=== PATIENT | female | born 1995 | race Caucasian/White ===

== ENCOUNTER 2020-06-09 09:42 | Emergency (ER) | payer MEDICAID, SELFPAY ==
[2020-06-09 09:44] VITALS: BP 126/68; PULSE 94; RESP 17; TEMP 36.3; O2SAT 100; BMI 23.0
--- NOTE | 2020-06-09 10:05 | ED.VIS.GEN ---
History of Present Illness Chief Complaint: Chest Pain Informant: Patient Narrative: 24-year-old female presenting with right-sided chest wall pain. She states that she got very worked up during an argument with her significant other earlier and began to hyperventilate. After this her right ribs started hurting her worse. Denies any direct trauma to the area. She states that she gets this from time to time when she hyperventilates. She also relates that she has had a cough on and off for the last month. She also relates a history of hayfever which may be the cause. She is not had fever, myalgias, loss of taste or smell, contact with anybody ill with COVID?19 or other illness. She has a history of asthma but has not needed her inhaler. Past Medical History - Allergies and Home Meds Allergies/Adverse Reactions: Allergies No Known Allergies Allergy (Verified 06/13/17 02:50) Primary Care Physician: Carisa Price DO [NON-STAFF] - Care Physician,No Primary [Primary Care Provider] - Past Medical History: - - Asthma Surgical History: no surgical history Lives: Spouse/ Significant Other Smoking Status: Never smoker Alcohol: None Drugs: None Review of Systems General: Denies: Chills, Fever, Sweats Eyes: Denies: Visual changes - bilaterally, Diplopia ENT: Denies: Rhinorrhea, Sore throat Cardiovascular: Reports: Chest pain. Denies: Palpitations, Heart racing Respiratory: Reports: Cough, - - Right-sided rib pain. Denies: Dyspnea, Sputum, Dyspnea on exertion Gastrointestinal: Denies: Abdominal pain, Nausea, Vomiting Genitourinary: Denies: Dysuria, Hematuria Musculoskeletal: Denies: Myalgias, Arthralgias Skin: Denies: Rash, Abscess Neurological: Denies: Headache, Weakness Physical Exam Vital Signs/Narrative: Vital Signs Temp Pulse Resp BP Pulse Ox 06/09/20 09:44 97.3 F L 94 17 126/68 H 100 Inital Vital Signs reviewed: Yes General: Well nourished, No Acute Distress Head: Normocephalic Eyes: Perrl, EOMI ENT: Moist mucous membranes Neck: Supple, Nontender Cardiovascular: Regular rate, Regular rhythm Respiratory: No distress, CTA bilaterally Abdomen: Soft, Nontender, Nondistended Back: Nontender, Normal Inspection Extremities: Nontender, No edema Skin: Normal color, No rash Neurological: Alert, Oriented x3 Psychological: Normal affect Diagnostic/Tx/Re-eval Clinical Impression(s) from Imaging Studies Chest X-Ray 06/09/20 10:22 IMPRESSION: Normal x-ray examination of the chest. Electronically Signed: Abhay Salazar MD at 10:49 EDT , Service support , Laboratory Data 06/09/20 06/09/20 06/09/20 10:09 10:09 10:09 WBC 8.1 RBC 4.34 Hgb 14.0 Hct 41.1 MCV 94.7 MCH 32.3 H MCHC 34.1 RDW Std Deviation 39.2 RDW Coeff of Marcela 11.5 L Plt Count 283 MPV 9.5 Immature Gran % (Auto) 0.400 Neut % (Auto) 85.7 H Lymph % (Auto) 8.1 L [place] % (Auto) 4.0 Eos % (Auto) 1.6 Baso % (Auto) 0.2 Absolute Neuts (auto) 6.9 Absolute Lymphs (auto) 0.65 L Nucleated RBC % 0 Differential Comment SCANNED Sodium 140 Potassium 3.7 Chloride 109 H Carbon Dioxide 25.0 Anion Gap 6 BUN 9 Creatinine 0.66 Estim Creat Clear Calc 106.85 Est GFR (MDRD) Af Amer 139 Est GFR (MDRD) Non-Af 115 BUN/Creatinine Ratio 13.7 Glucose 94 Calcium 8.5 Troponin I < 0.015 Serum , Qual NEGATIVE - Rhythm Strip Rhythm Strip: Sinus Rhythm Rate: 87 - EKG Initial EKG Interpretation: Sinus Rhythm, No Acute Injury Pattern - Medical Decision Making Patient presents with right-sided chest wall pain after having an argument and hyperventilating. She has no cardiac history. Her heart score is 0. PERC negative. Vital signs are stable and she is afebrile. EKG is normal sinus rhythm without signs of ischemia. Chest x-ray is negative. Lab work is all within normal limits. Patient counseled on all findings. Should be discharged home to use ice and anti-inflammatories for pain. She is given return precautions. Impression: 1. Atypical chest pain ED Disposition - Plan for ED Patient: Disposition: Home or Assisted Living Instructions: ED Chest Pain Atypical Unkn Cause Referrals: Care Physician,No Primary [Primary Care Provider] - Albert,DO Carisa [NON-STAFF] -
--- NOTE | 2020-06-09 10:12 | EKG12_ITS ---
Test Reason : CP Blood Pressure : / mmHG Vent. Rate : 087 BPM Atrial Rate : 087 BPM P-R Int : 156 ms QRS Dur : 070 ms QT Int : 356 ms P-R-T Axes : 082 085 050 degrees QTc Int : 428 ms Normal sinus rhythm Normal ECG Confirmed by CHEYENNE HOYOS MD ([id number]), skilled laborer TAMIE OROZCO ([id number]) on 06/12/2020 4:08:17 PM Referred By: GINI Confirmed By:CHEYENNE HOYOS MD
--- NOTE | 2020-06-09 10:17 | NURSING ---
PATIENT DID NOT HAVE PREVIOUS EKG DONE IN OUR SYSTEM
--- NOTE | 2020-06-09 10:22 | RAD_ITS ---
STUDY: X-RAY CHEST REASON FOR EXAM: Female, 24 years old. COUGH X 2 MONTHS, CP X 1 HOUR TECHNIQUE: Single AP portable upright view of the chest. COMPARISON: PA and lateral chest x-ray 07/23/2014 FINDINGS: The lungs are clear and expanded. There is no demonstrated pleural abnormality. Normal size heart. Normal mediastinum and ace. Normal visualized pulmonary arteries. Normal visualized aortic arch and descending thoracic aorta. Normal visualized thoracic spine. Normal visualized ribs, clavicles, and shoulders. There is no demonstrated abnormality of the visualized soft tissue structures of the upper abdomen. RAD/Chest 1 View (Portable) IMPRESSION: Normal x-ray examination of the chest. Electronically Signed: Abhay Salazar MD at 10:49 EDT , Service support ,
[2020-06-09 10:25] LABS: Absolute Lymphocyte Count 0.65 X10^3/uL (0.83-4.51); Absolute Neutrophil Count 6.9 X10^3/uL (2.0-7.7); Basophil# 0.02 X10^3/uL; Basophil% 0.2 % (0-1); Eosinophil# 0.13 X10^3/uL; Eosinophils% 1.6 % (0-5); Hematocrit 41.1 % (37-47); Lymphocyte # 0.65 X10^3/ul (4.0); Lymphocyte % 8.1 % (19-41); Mean Corp Hgb Conc 34.1 g/dL (32-36); Mean Corpuscular Hgb 32.3 pg (27.0-32.0); Mean Corpuscular Volume 94.7 fL (81-99); Mean Platelet Vol. 9.5 fl (6.2-12.0); Monocyte# 0.32 X10^3/uL; NRBC Flagged by Analyzer 0 % (0-5); Neutrophil # 6.91 X10^3/uL (2.7-7.7); Neutrophil % 85.7 % (47-70); POSITIVE MORPHOLOGY YES; Platelet Count 283 K/mm3 (150-450); RBC Distribution Width CV 11.5 % (11.6-14.6); RBC Distribution Width SD 39.2 fl (35.1-43.9); Red Blood Count 4.34 M/mm3 (4.2-5.4); White Blood Count 8.1 K/mm3 (4.4-11.0)
[2020-06-09 10:32] VITALS: BP 113/74; PULSE 85; RESP 18; O2SAT 98
[2020-06-09 10:34] LABS: Differential Indicated SCAN CRITERIA MET
[2020-06-09 10:42] LABS: Internal QC Validated? YES +Cl - CLEAR BKGD; Pregnancy, Serum, hCG Quali. NEGATIVE Negative
[2020-06-09 10:51] LABS: Anion Gap 6 (5-15); BUN 9 mg/dL (7-18); BUN/Creat Ratio 13.7 RATIO (10-20); Calcium,Total 8.5 mg/dL (8.5-10.1); Chloride 109 mmol/L (98-107); Creatinine, Serum 0.66 mg/dL (0.55-1.02); EST Glomerular Filtration Rate 115 mL/min (>60); Est Glom Filt Rate - Afr Amer 139 mL/min (>60); Estimated Creatinine Clearance 106.85 ml/min; Glucose 94 mg/dL (74-106); Potassium 3.7 mmol/L (3.5-5.1); Sodium Level 140 mmol/L (136-145)
[2020-06-09 11:09] VITALS: PULSE 83; RESP 15
[2020-06-09 11:17] LABS: Differential Comment SCANNED
== END 2020-06-09 11:20 | disposition home or self-care (01) ==
PROVIDERS: Emergency Provider Student in an Organized Health Care Education/Training Program
DX: R07.89 Other chest pain (principal); J45.909 Unspecified asthma, uncomplicated
CPT/HCPCS: 71045; 80048; 84484; 84703; 85025; 93005; 99284; A4216

== ENCOUNTER 2020-07-10 16:44 | Emergency (ER) | payer MEDICAID, SELFPAY ==
[2020-07-10 16:44] VITALS: BP 131/81; PULSE 98; RESP 15; TEMP 36.6; O2SAT 100; BMI 22.6
--- NOTE | 2020-07-10 16:51 | ED.VIS.GEN ---
History of Present Illness Chief Complaint: Upper Extremity Injury Informant: Patient Onset: Today Narrative: Patient is a 24-year-old female who states that this morning she punched a wall injuring her right hand. She is right-hand dominant. She denies any other injuries. Past Medical History - Allergies and Home Meds Allergies/Adverse Reactions: Allergies No Known Allergies Allergy (Verified 07/10/20 16:46) Primary Care Physician: Care Physician,No Primary [Primary Care Provider] - Past Medical History: None Surgical History: no surgical history Lives: Spouse/ Significant Other Smoking Status: Never smoker Drugs: None Review of Systems General: Denies: Chills, Fever, Sweats Eyes: Denies: Visual changes - bilaterally, Diplopia ENT: Denies: Rhinorrhea, Sore throat Cardiovascular: Denies: Chest pain, Palpitations Respiratory: Denies: Dyspnea, Cough, Dyspnea on exertion Gastrointestinal: Denies: Abdominal pain, Nausea, Vomiting, Diarrhea, Melena, Hematochezia Genitourinary: Denies: Dysuria, Hematuria, Frequency Musculoskeletal: Reports: Extremity Pain. Denies: Back pain Skin: Denies: Rash, Wounds Neurological: Denies: Headache, Weakness, Numbness Physical Exam Vital Signs/Narrative: Vital Signs Temp Pulse Resp BP Pulse Ox 07/10/20 16:44 98 F 98 15 131/81 H 100 Inital Vital Signs reviewed: Yes General: Well nourished, Well developed, No Acute Distress Head: Normocephalic, Atraumatic Eyes: Perrl, EOMI ENT: Moist mucous membranes, No rhinorrhea Neck: Supple, Nontender Cardiovascular: Regular rate, Regular rhythm, No murmurs Respiratory: No distress, CTA bilaterally, Chest nontender Abdomen: Soft, Nontender, Nondistended, Normal bowel sounds Back: Nontender, Normal Inspection Extremities: No edema, Tenderness - Patient has purple ecchymosis and swelling over the dorsum of the middle ring and little fingers. No malrotation. Tender to palpation. NVI. Skin: Normal color, No rash Neurological: Alert, Oriented x3, Cranial nerves II-XII grossly intact, Normal Strength, Normal Sensation Psychological: Normal affect, Normal Mood Diagnostic/Tx/Re-eval STUDY: X-RAY - RIGHT HAND REASON FOR EXAM: Female, 24 years old. Punched a wall. TECHNIQUE: 3 view(s) of the hand. COMPARISON: None. FINDINGS: Normal radiocarpal articulation. Normal distal radioulnar joint. Normal visualized carpal bones. Normal carpal articulations Normal carpometacarpal articulation of the thumb. Normal second through fifth carpometacarpal joints. Normal metacarpi. Normal metacarpophalangeal joint of the thumb. Normal interphalangeal joint of the thumb. Normal proximal and distal phalanges of the thumb. Normal metacarpophalangeal joints of the second through fifth fingers. Normal proximal and distal interphalangeal joints of the second through fifth fingers. Normal phalanges of the second through fifth fingers. The soft tissue structures are unremarkable. IMPRESSION: No acute fracture or dislocation. Electronically Signed: Signature for DO Ludin Coffman DO at 17:42 EDT Tel [phone], Service support , - Medical Decision Making X-rays of the hand were negative. Patient be discharged home with supportive care. Follow-up 10 to 14 days if not improved. ED Disposition - Plan for ED Patient: Disposition: Home or Assisted Living Diagnosis: Contusion of right hand Instructions: ED HAND CONTUSION Referrals: Juan M Hernandez MD [STAFF PHYSICIAN] - 10-14 Days if not better
--- NOTE | 2020-07-10 16:54 | RAD_ITS ---
STUDY: X-RAY - RIGHT HAND REASON FOR EXAM: Female, 24 years old. Punched a wall. TECHNIQUE: 3 view(s) of the hand. COMPARISON: None. FINDINGS: Normal radiocarpal articulation. Normal distal radioulnar joint. Normal visualized carpal bones. Normal carpal articulations Normal carpometacarpal articulation of the thumb. Normal second through fifth carpometacarpal joints. Normal metacarpi. Normal metacarpophalangeal joint of the thumb. Normal interphalangeal joint of the thumb. Normal proximal and distal phalanges of the thumb. Normal metacarpophalangeal joints of the second through fifth fingers. Normal proximal and distal interphalangeal joints of the second through fifth fingers. Normal phalanges of the second through fifth fingers. The soft tissue structures are unremarkable. RAD/Hand Min 3 Views IMPRESSION: No acute fracture or dislocation. Electronically Signed: Ludin Gandhi DO at 17:42 EDT Tel [phone], Service support ,
== END 2020-07-10 17:51 | disposition home or self-care (01) ==
PROVIDERS: Emergency Provider Emergency Medicine
DX: S60.221A Contusion of right hand, initial encounter (principal); Y29.XXXA Contact with blunt object, undetermined intent, initial encounter
CPT/HCPCS: 73130; 99282

== ENCOUNTER 2020-07-12 10:14 | Emergency (ER) | payer MEDICAID, SELFPAY ==
[2020-07-12 10:15] VITALS: BP 135/103; PULSE 104; RESP 16; TEMP 36.4; O2SAT 99; BMI 22.6
--- NOTE | 2020-07-12 10:41 | ED.VIS.LOWEX ---
History of Present Illness Chief Complaint: Lower Extremity Injury Informant: Patient Occurred: Days Mechanism/Context: Injury Associated Symptoms: Negative for: Parasthesia, Weakness, Loss of Funtion Narrative: Patient is a 24-year-old female with no significant past medical history presenting with worsening pain in her left foot at the base of her left great toe. Patient states 2 days ago she was upset, jumped out of bed and punched start in a wall. At that time she injured her right hand and was seen in the ER for pain in her right hand. She was diagnosed to contusion. She did not really realize that she also injured her foot when she was getting out of the bed. As time is progressed she is now having more pain in her foot. She has hard time ambulating. She states yesterday her foot was significantly more swollen but that was better with elevation and ice. Today she is having a lot of pain especially with movement and bruising so she came to the ER to be evaluated further. No other injuries. No numbness or paresthesias. Pain with range of motion of her toes. No other complaints at this time. Past Medical History - Allergies and Home Meds Allergies/Adverse Reactions: Allergies No Known Allergies Allergy (Verified 07/12/20 10:17) Primary Care Physician: Care Physician,No Primary [Primary Care Provider] - Surgical History: no surgical history Smoking Status: Never smoker Review of Systems General: Denies: Chills, Fever, Sweats Eyes: Denies: Visual changes - bilaterally, Diplopia ENT: Denies: Rhinorrhea, Sore throat Cardiovascular: Denies: Chest pain, Palpitations Respiratory: Denies: Dyspnea, Cough, Dyspnea on exertion Gastrointestinal: Denies: Abdominal pain, Nausea, Vomiting, Diarrhea, Melena, Hematochezia Genitourinary: Denies: Dysuria, Hematuria, Frequency Musculoskeletal: Reports: Extremity Pain - Foot- left . Denies: Back pain Skin: Denies: Rash, Abrasions, Wounds Neurological: Denies: Headache, Weakness, Numbness Physical Exam Vital Signs/Narrative: Vital Signs Temp Pulse Resp BP Pulse Ox 07/12/20 10:15 97.5 F L 104 H 16 135/103 H 99 Inital Vital Signs reviewed: Yes - Extremity Exam Left Knee: -. Negative for: Contusion, Deformity, Limited ROM Left Tib Fib: - - No fibular head tenderness. Negative for: Contusion, Deformity, Limited ROM Left Ankle: Negative for: Contusion, Deformity, Edema, Limited ROM Left Foot: - - Ecchymosis present at the base of the left great toe. Tenderness palpation over the distal, medial foot with no obvious deformity.. Negative for: Contusion, Deformity Left Toe: Limited ROM - Left great toe secondary to pain. Negative for: Abrasion, Contusion, Deformity General: Well nourished, Well developed Head: Normocephalic, Atraumatic Eyes: Perrl, EOMI ENT: No Trauma, Moist Mucous Membranes Neck: Nontender, Full ROM Cardiovascular: Regular rate, Regular rhythm, No murmurs, - - 2+ DP pulse Respiratory: No distress, CTA bilaterally, Chest nontender Abdomen: Soft, Nontender, Nondistended, Normal bowel sounds Back: Nontender Skin: No rash, - - Ecchymosis present over the left distal, dorsal foot just proximal to the 1st MCP Neurological: Alert, Oriented x3, Cranial nerves II-XII grossly intact, Normal Strength, Normal Sensation Psychological: Normal affect Diagnostic/Tx/Re-eval Clinical Impression(s) from Imaging Studies Foot X-Ray 07/12/20 11:00 IMPRESSION: Normal x-ray examination of the foot. Electronically Signed: Kiran Macario, at 11:19 EDT , Service support , - Medical Decision Making Evaluated for left foot pain and injury for the past 2 to 3 days. She has some bruising associated with it. She not take anything for pain prior to arrival. She is neurovascularly intact. She appears nontoxic and uncomfortable secondary to pain. X-ray does not show any acute fracture. Patient likely has a contusion. She is given an Jerry wrap and postop shoe because she is having significant pain and podiatry for outpatient follow-up. She is given a work note. She will be started on Motrin 600 mg. Patient is counseled on signs and symptoms requiring return to the emergency room. Patient verbalizes agreement and understand this plan. Patient discharged home in stable and improved condition. ED Disposition - Plan for ED Patient: Disposition: Home or Assisted Living Diagnosis: Contusion of left foot Instructions: ED FOOT CONTUSION Prescriptions: Ibuprofen [Motrin] 600 mg PO Q6H PRN PRN #20 tab PRN Reason: Pain Score 1-06/30 Transmission Status: Pending to [facility] #30 Referrals: Meaghan Sanchez DPM [STAFF PHYSICIAN] -
--- NOTE | 2020-07-12 11:00 | RAD_ITS ---
STUDY: X-RAY - LEFT FOOT CLINICAL: Female, 24 years old. 1-2 DISTAL MT AND DIGIT PAIN, SWELLING AND BRUISING. TECHNIQUE: 3 view(s) of the foot. COMPARISON: None. FINDINGS: Normal talus, calcaneus, and tarsal bones. Normal visualized subtalar, talonavicular, calcaneocuboid, tarsal and tarsometatarsal articulations. Normal metatarsi. Normal metatarsophalangeal joint of the great toe. Normal tibial and fibular sesamoid bones. Normal interphalangeal joint of the great toe. Normal phalanges of the great toe. Normal second through fifth metatarsophalangeal joints. Normal interphalangeal joints and phalanges of the lesser toes. The soft tissue structures are unremarkable. RAD/Foot min 3 Views IMPRESSION: Normal x-ray examination of the foot. Electronically Signed: Kiran Sorto, at 11:19 EDT , Service support ,
[2020-07-12] MEDS: Ibuprofen 600 MG Tablet PO (12:06)
[2020-07-12] MEDS: Acetaminophen 500 MG Tablet 1000 MG PO (12:06)
[2020-07-12 12:54] VITALS: PULSE 89; RESP 17; O2SAT 97
== END 2020-07-12 12:56 | disposition home or self-care (01) ==
PROVIDERS: Emergency Provider Emergency Medicine
DX: S90.32XA Contusion of left foot, initial encounter (principal); X50.9XXA Other and unspecified overexertion or strenuous movements or postures, initial encounter; Y93.39 Activity, other involving climbing, rappelling and jumping off; Y92.003 Bedroom of unspecified non-institutional (private) residence as the place of occurrence of the external cause; Y99.9 Unspecified external cause status
CPT/HCPCS: 73630; 99282

== ENCOUNTER 2023-04-01 14:40 | Emergency (ER) | payer MEDICAID, SELFPAY ==
[2023-04-01 14:42] VITALS: BP 135/91; PULSE 93; RESP 18; TEMP 36.6; O2SAT 100; BMI 24.0
--- NOTE | 2023-04-01 16:04 | EX.ED.GENINJ ---
HPI History of Present Illness Chief Complaint: Other, Pain/Inj PFSH PFSH Medical History (Updated 04/01/23 @ 17:[address] Anival Torres, DO) Asthma COVID-19 Home Medications ibuprofen 600 mg tablet 600 mg PO Q6H PRN PRN Pain Score 1-10/10 #20 tabs 07/12/20 [Rx Last Taken Unknown] sulfamethoxazole 800 mg-trimethoprim 160 mg tablet (Bactrim DS) 1 tab PO BID 7 days #14 tabs 04/01/23 [Rx Last Taken Unknown] Allergy/AdvReac Type Severity Reaction Status Date / Time No Known Allergies Allergy Verified 04/01/23 14:43 Family History (Updated 04/01/23 @ 16:15 by Sarah Beth Posadas) Other Ovarian cancer Social History Smoking Status: Never smoker EXAM Physical Exam Const Vital Signs: 04/01/23 14:42 04/01/23 16:04 Temperature 98 F Temperature Source Temporal Pulse Rate 93 Respiratory Rate 18 Respiratory Effort Normal Respiratory Pattern Normal Blood Pressure 135/91 H Blood Pressure Mean 105 Pulse Ox 100 Oxygen Delivery Method Room Air MDM MDM MDM Narrative Medical decision making narrative: HISTORY OF PRESENT ILLNESS: 27-year-old female here with concern for right armpit swelling. She states for the past 2 days she has had pain in her right breast, redness and swelling in her right armpit. Denies any fever or vomiting. Denies any sore throat. Denies any cough. She is not breast-feeding or at this time. REVIEW OF SYSTEMS: Pertinent positives: Breast pain, redness Pertinent negatives: Fever, vomiting PHYSICAL EXAM: Nursing triage notes reviewed, Vital signs reviewed Constitutional: please see mdm HENT: MMM Eyes: Pupils equal round and reactive to light, Extraocular muscles intact Neck: No stridor, no JVD, full neck ROM Lungs: Clear to auscultation, No wheezing or rales. No increased work of breathing, no conversational dyspnea, no accessory muscle use, no nasal flaring. No respiratory distress noted Breast: (Exam done with public relations coordinator) right breast with redness around the right lower quadrant of the breast next to the areola. No peau orange, no dimpling, no nipple retraction. No crepitus or bullae. No obvious fluctuance or induration or palpable pitted abscess Heart: Regular rate and rhythm, No murmurs, No rubs and No gallops, 2+ distal pulses (radial, femoral, posterior tibial) in all extremities Abdomen: Soft, there is no tenderness, rigidity, rebound or guarding, no obvious peritoneal signs, no palpable pulsatile abdominal masses, no auscultated abdominal bruit : No CVAT Extremities: No edema Neuro: No focal neurological deficits, cranial nerves II through XII intact, 5/5 strength in all extremities. Intact sensation to light touch in all extremities, 2+ reflexes bilateral patella tendons. Normal gait. No ataxia. Skin: No rash or lesions noted MEDICAL DECISION MAKING: Chief Complaint: Breast pain External records reviewed: No recent ED visits or hospitalizations noted Factors affecting care: Asthma, COVID-19 ALL IMAGES (IF OBTAINED) HAVE BEEN PERSONALLY REVIEWED AND INTERPRETED BY MYSELF. [facility] Narrative: Patient is hemodynamically stable, afebrile, nontoxic-appearing I considered the following differential diagnosis: Lymphadenopathy, mass, breast cancer, breast abscess, breast cellulitis Exam most consistent with cellulitis. Obtain an ultrasound to rule out breast abscess. Ultrasound showed no evidence of breast abscess. Will give oral Bactrim for MRSA coverage and antimicrobial effect. There is no clinical evidence of breast cancer however I cannot completely rule this out. I gave her a course of antibiotics and g PCP follow-up for further outpatient evaluation and possible mammogram. The patient and/or family, caregivers express understanding. The patient and/or family, caregivers agrees with the plan. Total critical care time today provided was at least 0 minutes. This excludes separately billable procedures. Critical care time (if documented) is secondary to the patient having high probability of clinically significant/life threatening deterioration in the patient's condition which required my urgent intervention. Shared decision making: I will have a discussion with the patient and or visitors regarding risk/benefits of further testing or admission. They will be made aware of of the risk/benefits inherent in this decision they will be given the opportunity to voice understanding. Radiography Diagnostic Testing: Clinical Impression(s) from Imaging Studies Breast Ultrasound 04/01/23 16:20 IMPRESSION: No evidence of breast abscess. Dense breast tissue with mild diffuse ductal ectasia. ASSESSMENT CATEGORY: BIRADS Category 2: Benign. FOLLOW UP RECOMMENDATION: Clinical follow-up for breast pain and erythema. If erythema and/or localized pain persists with treatment then would recommend diagnostic mammogram with second look ultrasound. NOTES: 7-10% of cancers are not identified by mammography. Any palpable finding should be evaluated independently of this report. Guidelines for Early Breast Cancer Detection: * Annual breast examination by a physician or other health care provider. * Monthly breast self-examination. * Annual mammography screening beginning at age 40 and continuing for as long as a woman is in good health. * Women at increased risk (e.g., family history, genetic tendency, past breast cancer) should talk with their doctors about the benefits and limitations of starting mammography screening earlier, having additional tests (e.g., breast ultrasound or MRI) or having more frequent exams. Screening MRI is recommended for women with an approximately 20-25% or greater lifetime risk of breast cancer, including women with a strong family history of breast or ovarian cancer and women who were treated for Hodgkin''''s disease. Electronically Signed: Chaparro Wong MD at 17:24 EDT Reading Location ID and State: [address] [place] [address] Tel , Service support , Discharge Plan Triage Chief Complaint: Other, Pain/Inj ED Provider: Anival Torres Dx/Rx/DC Orders Clinical Impression: Cellulitis of breast Instructions: Cellulitis Dc Prescriptions: New sulfamethoxazole-trimethoprim [Bactrim DS] 800-160 mg tablet 1 tab PO BID 7 Days Qty: 14 0RF No Action ibuprofen 600 MG tablet 600 mg PO Q6H PRN PRN (Reason: Pain Score 1-10/10) Qty: 20 0RF Primary Care Provider: Care Physician,No Primary Referrals: Wallace Sutton DO [Med Staff - Fabric Finisher] - Activity Restrictions/Additional Instructions: Thank you for trusting us with your care today! Please take Tylenol (2 pills, 650 mg), ibuprofen (2 pills, 400 mg) every 6 hours as needed for pain and fever control. Please take antibiotics as prescribed. Please continue antibiotics until course is complete. Please return to the emergency department if your symptoms change or worsen. Specifically he cannot take antibiotic by mouth. Develop fever, vomiting or if you lose consciousness. Please follow with your primary care physician for further outpatient evaluation and management. Disposition Disposition: Home, Self Care Discharge Date/Time: 04/01/23 17:50
--- NOTE | 2023-04-01 16:20 | US_ITS ---
INDICATION: right sided breast redness r/o abscess. Right periareolar redness and pain. EXAMINATION: Ultrasound RIGHT US Breast Unilateral Limited TECHNIQUE: Targeted retroareolar hastings scale and color-flow imaging was performed of the right breast. COMPARISON: None. FINDINGS: Heterogeneous background echotexture with dense fibroglandular tissue.. Targeted ultrasound of the retroareolar and right periareolar area of pain demonstrates mild diffuse ductal ectasia without appreciated intraductal mass. No organized fluid collection or abscess. No discrete retroareolar cystic or solid mass. Shadowing from dense breast tissue degrades posterior evaluation. No focal sonographic architectural distortion. US/Breast Limited Unilateral IMPRESSION: No evidence of breast abscess. Dense breast tissue with mild diffuse ductal ectasia. ASSESSMENT CATEGORY: BIRADS Category 2: Benign. FOLLOW UP RECOMMENDATION: Clinical follow-up for breast pain and erythema. If erythema and/or localized pain persists with treatment then would recommend diagnostic mammogram with second look ultrasound. NOTES: 7-10% of cancers are not identified by mammography. Any palpable finding should be evaluated independently of this report. Guidelines for Early Breast Cancer Detection: * Annual breast examination by a physician or other health care provider. * Monthly breast self-examination. * Annual mammography screening beginning at age 40 and continuing for as long as a woman is in good health. * Women at increased risk (e.g., family history, genetic tendency, past breast cancer) should talk with their doctors about the benefits and limitations of starting mammography screening earlier, having additional tests (e.g., breast ultrasound or MRI) or having more frequent exams. Screening MRI is recommended for women with an approximately 20-25% or greater lifetime risk of breast cancer, including women with a strong family history of breast or ovarian cancer and women who were treated for Hodgkin''''s disease. Electronically Signed: Chaparro Wong MD at 17:24 EDT ,
[2023-04-01] MEDS: Ibuprofen 200 MG Tablet 400 MG PO (16:24)
[2023-04-01] MEDS: Smz/Tmp Ds Tablet 1 TABLET PO (16:28)
== END 2023-04-01 17:50 | disposition home or self-care (01) ==
PROVIDERS: Emergency Provider Emergency Medicine; Visit Provider Emergency Medicine
DX: N61.0 Mastitis without abscess (principal)
CPT/HCPCS: 76642; 99283

== ENCOUNTER 2023-09-28 02:38 | Emergency (ER) | payer MEDICAID, SELFPAY ==
[2023-09-28] VITALS (8 sets, daily range): BP systolic 118–155; BP diastolic 71–94; PULSE 64–117; RESP 12–16; TEMP 36.3–36.6; O2SAT 97–100; BMI 23.6
--- NOTE | 2023-09-28 02:46 | EKG12_ITS ---
Test Reason : OD Blood Pressure : / mmHG Vent. Rate : 109 BPM Atrial Rate : 109 BPM P-R Int : 138 ms QRS Dur : 070 ms QT Int : 340 ms P-R-T Axes : 082 078 060 degrees QTc Int : 457 ms Sinus tachycardia Otherwise normal ECG Confirmed by SOHA ELLIOTT, CHEYENNE ([id number]), metropolitan editor MINDA PEARSON ([id number]) on 09/29/2023 9:59:02 AM Referred By: Confirmed By:CHEYENNE HOYOS MD
[2023-09-28 02:55] LABS: Absolute Lymphocyte Count 1.21 X10^3/uL (0.83-4.51); Absolute Neutrophil Count 11.9 X10^3/uL (2.0-7.7); Basophil# 0.06 X10^3/uL; Basophil% 0.4 % (0-1); Eosinophil# 0.01 X10^3/uL; Eosinophils% 0.1 % (0-5); Hematocrit 41.2 % (37-47); Hemoglobin 13.9 g/dL (12.0-15.0); Lymphocyte # 1.21 X10^3/ul (0.83-4.51); Lymphocyte % 8.9 % (19-41); Mean Corp Hgb Conc 33.7 g/dL (32-36); Mean Corpuscular Volume 91.8 fL (81-99); Mean Platelet Vol. 9.1 fl (6.2-12.0); Monocyte% 2.9 % (0-10); NRBC Flagged by Analyzer 0 % (0-5); Neutrophil # 11.85 X10^3/uL (2.7-7.7); Neutrophil % 87.4 % (47-70); Platelet Count 348 K/mm3 (150-450); RBC Distribution Width CV 12.5 % (11.6-14.6); RBC Distribution Width SD 41.6 fl (35.1-43.9); Red Blood Count 4.49 M/mm3 (4.2-5.4); White Blood Count 13.6 K/mm3 (4.4-11.0)
--- OUTSIDE RECORDS SUMMARY | 2023-09-28 03:07 | XMS RPT_ITS | CCD ---
Author Name Unknown Address [address] [place] [address] Organization [facility] Care Team Providers Care Retail Event Assistant Name Role Phone Unavailable Primary Care Provider UnavailJADIEL Irwin Referring Unavailable JADIEL ABBASI Attending Unavailable AMANDA SHANNON Referring Unavailable AMANDA SHANNON Attending Unavailable Medications Current Medications Medication Drug Class(es) Dates Sig (Normalized) Sig (Original) predniSONE 20 mg oral tablet (3 sources) Start: 11-18-2022 End: 11-23-2022 take 2 tablets by mouth once daily predniSONE (DELTASONE) 20 mg tablet Take 2 tablets by mouth once daily for 5 days. 10 tablet 0 11/18/2022 11/23/2022 Active Completed/Discontinued Medications Medication Drug Class(es) Dates Sig (Normalized) Sig (Original) benzonatate 100 mg oral capsule (4 sources) Non-narcotic Antitussive Start: 11-18-2022 take 2 capsules by mouth every eight hours as needed benzonatate (TESSALON PERLES) 100 mg capsule Take 2 capsules by mouth three times daily as needed. 30 capsule 0 11/18/2022 Active Problems Problem Classification Problem Date Documented Date Episodic/Chronic Disorders usually diagnosed in infancy, childhood, or adolescence (8 sources) Attention deficit hyperactivity disorder, predominantly inattentive type; Translations: [Other specified behavioral and emotional disorders with onset usually occurring in childhood and adolescence] Onset: 11-05-2005 11-05-2005 Chronic Female infertility (2 sources) Female infertility, unspecified; Translations: [Female infertility] Onset: 06-08-2023 06-08-2023 Chronic Menstrual disorders (2 sources) Menorrhagia; Translations: [Excessive and frequent menstruation with regular cycle] Onset: 06-30-2023 06-30-2023 Chronic Nonmalignant breast conditions (1 source) Pain of breast; Translations: [Mastodynia] 04-01-2023 Episodic Other ear and sense organ disorders (1 source) Otalgia, right ear; Translations: [Otalgia, unspecified] Episodic Other upper respiratory infections (2 sources) Sore throat symptom; Translations: [Acute pharyngitis, unspecified] Episodic Otitis media and related conditions (1 source) Dysfunction of bilateral eustachian tubes; Translations: [Other specified disorders of Eustachian tube, bilateral] Episodic Results Test Name Value Interpretation Reference Range Facil ity Vital Signs Date Time Vital Sign Value Performing Clinician Faci lity 06-30-2023 11:00-0400 Body weight 62.6 kg Jadiel Abbasi MD Work Phone: [facility] [place] 06-30-2023 11:00-0400 Diastolic blood pressure 70 mm[Hg] Jadiel Abbasi MD Work Phone: [facility] [place] 06-30-2023 11:00-0400 Systolic blood pressure 118 mm[Hg] Jadiel Abbasi MD Work Phone: [facility] [place] 04-01-2023 13:45-0400 Body temperature 99.19 [degF] Krislyn Aberegg PA Work Phone: [facility] [place] 04-01-2023 13:45-0400 Body weight 62.14 kg Krislyn Aberegg PA Work Phone: [facility] [place] 04-01-2023 13:45-0400 Diastolic blood pressure 84 mm[Hg] Krislyn Aberegg PA Work Phone: [facility] [place] 04-01-2023 13:45-0400 Heart rate 100 /min Krislyn Aberegg PA Work Phone: [facility] [place] 04-01-2023 13:45-0400 Respiratory rate 20 /min Krislyn Aberegg PA Work Phone: [facility] [place] 04-01-2023 13:45-0400 SaO2% (BldA) [Mass fraction] 99 % Krislyn Aberegg PA Work Phone: [facility] [place] 04-01-2023 13:45-0400 Systolic blood pressure 122 mm[Hg] Krislyn Aberegg PA Work Phone: [facility] [place] 11-18-2022 18:30-0500 Body temperature 98.8 [degF] Betty Athy PA-C Work Phone: [facility] [place] 11-18-2022 18:30-0500 Body weight 63.41 kg Betty Athy PA-C Work Phone: [facility] [place] 11-18-2022 18:30-0500 Diastolic blood pressure 72 mm[Hg] Betty Athy PA-C Work Phone: [facility] [place] 11-18-2022 18:30-0500 Heart rate 87 /min Betty Athy PA-C Work Phone: [facility] [place] 11-18-2022 18:30-0500 Respiratory rate 18 /min Betty Athy PA-C Work Phone: [facility] [place] 11-18-2022 18:30-0500 SaO2% (BldA) [Mass fraction] 98 % Betty Athy PA-C Work Phone: [facility] [place] 11-18-2022 18:30-0500 Systolic blood pressure 110 mm[Hg] Betty Athy PA-C Work Phone: [facility] [place] 11-14-2022 10:13-0500 Body temperature 98.49 [degF] Krislyn Aberegg PA Work Phone: [facility] [place] 11-14-2022 10:13-0500 Body weight 63.59 kg Krislyn Aberegg PA Work Phone: [facility] [place] 11-14-2022 10:13-0500 Diastolic blood pressure 66 mm[Hg] Krislyn Aberegg PA Work Phone: [facility] [place] 11-14-2022 10:13-0500 Heart rate 99 /min Krislyn Aberegg PA Work Phone: [facility] [place] 11-14-2022 10:13-0500 Respiratory rate 21 /min Krislyn Aberegg PA Work Phone: [facility] [place] 11-14-2022 10:13-0500 SaO2% (BldA) [Mass fraction] 99 % Joanie JORDAN Work Phone: [facility] [place] 11-14-2022 10:13-0500 Systolic blood pressure 118 mm[Hg] Joanie JORDAN Work Phone: [facility] [place] Encounters Encounter Date Encounter Type Care Provider Facility Start: 07-01-2023 Telephone encounter Jadiel Abbasi MD Work Phone: OB/Gynecology Procedures Date Procedure Procedure Detail Performing Clinician Start: 06-08-2023 transvaginal Amanda garcia APRN.[employer] Work Phone: Start: 11-14-2022 STREP A MOLECULAR (POC) Angeles Nunez APRN.[employer] Work Phone: Plan of Treatment Date Care Activity Detail Author Start: 06-01-2026 Pap Testing Pap Testing [facility] [place] Start: 06-30-2023 End: 08-30-2023 Follitropin [Units/volume] in Serum or Plasma [facility] Work Phone: Immunizations Immunization Date Immunization Notes Care Provider Jacky gardiner 11-30-2007 human papilloma viru s vaccine, quadrivalent Joanie Lama PA Work Phone: [facility] [place] Work Phone: 11-30-2007 varicella virus vaccine Brent Lama PA Work Phone: [facility] [place] Work Phone: 08-17-2007 human papilloma viru s vaccine, quadrivalent Irvingislyjuliana Abtadgg PA Work Phone: [facility] [place] Work Phone: 04-10-2006 Meningococcal, MCV4, unspecified conjugate formulation(groups A, C, Y and W-135) Joanie Lama PA Work Phone: [facility] [place] Work Phone: 10-21-2004 diphtheria and tetan us toxoids, adsorbed for pediatric use Krislyn Aberegg PA Work Phone: [facility] [place] Work Phone: 10-21-2004 influenza virus vaccine, unspecified formulation Krislyn Aberegg PA Work Phone: [facility] [place] Work Phone: 03-31-1999 measles, mumps and rubella virus vaccine Krislyn Aberegg PA Work Phone: [facility] [place] Work Phone: 03-19-1998 diphtheria, tetanus toxoids and acellular pertussis vaccine Krislyn Aberegg PA Work Phone: [facility] [place] Work Phone: 03-19-1998 haemophilus influenz ae type b vaccine, HbOC conjugate Krislyn Aberegg PA Work Phone: [facility] [place] Work Phone: 03-19-1998 trivalent poliovirus vaccine, live, oral Krislyn Aberegg PA Work Phone: [facility] [place] Work Phone: 03-17-1995 diphtheria, tetanus toxoids and acellular pertussis vaccine Krislyn Aberegg PA Work Phone: [facility] [place] Work Phone: 03-17-1995 trivalent poliovirus vaccine, live, oral Krislyn Aberegg PA Work Phone: [facility] [place] Work Phone: 11-17-1994 measles, mumps and rubella virus vaccine Krislyn Aberegg PA Work Phone: [facility] [place] Work Phone: 05-01-1994 diphtheria, tetanus toxoids and pertussis vaccine Krislyn Aberegg PA Work Phone: [facility] [place] Work Phone: 05-01-1994 haemophilus influenz ae type b vaccine, HbOC conjugate Krislyn Aberegg PA Work Phone: [facility] [place] Work Phone: 05-01-1994 hepatitis B vaccine, pediatric or pediatric/adolescent dosage Krislyn Aberegg PA Work Phone: [facility] [place] Work Phone: 02-19-1994 diphtheria, tetanus toxoids and pertussis vaccine Krislyn Aberegg PA Work Phone: [facility] [place] Work Phone: 02-19-1994 haemophilus influenz ae type b vaccine, HbOC conjugate Krislyn Aberegg PA Work Phone: [facility] [place] Work Phone: 02-19-1994 trivalent poliovirus vaccine, live, oral Krislyn Aberegg PA Work Phone: [facility] [place] Work Phone: 1993 diphtheria, tetanus toxoids and pertussis vaccine Krislyn Aberegg PA Work Phone: [facility] [place] Work Phone: 1993 haemophilus influenz ae type b vaccine, HbOC conjugate Krislyn Aberegg PA Work Phone: [facility] [place] Work Phone: 1993 hepatitis B vaccine, pediatric or pediatric/adolescent dosage Krislyn Aberegg PA Work Phone: [facility] [place] Work Phone: 1993 trivalent poliovirus vaccine, live, oral Krislyn Aberegg PA Work Phone: [facility] [place] Work Phone: 1993 hepatitis B vaccine, pediatric or pediatric/adolescent dosage Krislyn Aberegg PA Work Phone: [facility] [place] Work Phone: Payers Date Payer Category Payer Medicaid [id number] 2019 Medicaid [id number] Social History Date Type Detail Facility Start: 11-14-2022 Tobacco smoking stat us NHIS Never smoked tobacco [facility] [place] History of tobacco use Passive smoker [facility] Start: 11-14-2022 Tobacco use and exposure Smoke less tobacco non-user [facility] Start: 11-14-2022 End: 04-01-2023 Alcohol intake Not Asked [facility] Start: 1995 Sex Assigned At Not on file [facility] Start: 04-01-2023 End: 06-01-2023 History of Social function [facility] Start: 04-01-2023 End: 06-01-2023 Tobacco use panel [facility] Start: 06-01-2023 End: 06-30-2023 Alcohol intake Ex-drinker (finding) [facility] National Score (1-10 0), lower number is lower risk 66 [facility] Clinical Notes 11-14-2022 to 07-07-2023 Telephone Encounter - Emma Corrales RN - 07/07/2023 5:03 PM EDTTelephone Encounter - Marie Sánchez RN - 07/01/2023 4:13 PM EDTTelephone Encounter - Marie Sánchez RN - 07/01/2023 4:13 PM EDT Note Date & Type Note Facility 07-07-2023 Miscellaneous Notes Patient given message Left message to call office. Patient does not use her MyChart. Marie Sánchez RN ----- Message from Jadiel Abbasi MD sent at 07/01/2023 3:39 PM EDT ----- Deuce- Your progesterone level is low for being in the later part of your menstrual cycle. Let me know when your next period starts. Send a mychart message. With a lower progestgerone level we could consider a trial of clomid to see if we can get you to ovulate more efficiently and get the progesterone level up. I will wait for the semen analysis results as well. Have a good day. Jadiel Abbasi MD documented in this encounter [facility] 06-30-2023 Note HNO ID: [id number] Author: Jadiel Abbasi MD Service: ? Author Type: Physician Type: Progress Notes Filed: 06/30/2023 11:48 AM Note Text: Deuce Banks is a 27 year old female who presents for problem visit for preconceptual counseling. HPI: 27 YOF who has never conceived in the past here for preconceptual counseling. Same partner x 6 years w/o protection. Joselito is 29 and has never fathered a in past. Neither has had medical history that would be known to affect fertility. No h/o STIs. No meds for either of them. she is not currently taking PNV. OB History T0 L0 SAB0 IAB0 Ectopic0 Multiple0 Live Births0 Shampoo Technician History LMP: 06/20/2023 (Exact Date), Having periods Age at Menarche: Age at First : Age at Menopause: Shampoo Technician History Comments: Sexual Activity: Yes; Male Contraception: None PAST MEDICAL HISTORY Diagnosis Date PMH - PAST MEDICAL HISTORY OF Color Vision - Normal PAST SURGICAL HISTORY Procedure Laterality Date NONE FAMILY HISTORY Problem Relation Age of Onset Cervical Cancer Mother Ovarian cancer Maternal great-grandmother Social History Tobacco Use Smoking status: Never Passive exposure: Yes Smokeless tobacco: Never Vaping Use Vaping Use: Never used Substance Use Topics Alcohol use: Not Currently Drug use: Yes Types: Marijuana No current outpatient medications on file. No current facility-administered medications for this visit. Allergies As of Date: 06/30/2023 (No Known Allergies) Fully Assessed 06/30/2023 Allergies and current medication updated:Yes EXAM: BP 118/70 Wt 138 lb (62.6kg) LMP 06/20/2023 GENERAL: pleasant, female in no apparent distress HEENT: Normocephalic, atraumatic, mucus membranes moist, and no lesions, no hirsuite, minimal acne vulgaris ASSESSMENT AND PLAN: preconceptual counseling. D/w her folic acid D/w her healthy lifestyle, avoiding substances, timing of intercourse Offered empiric trial of clomid recommended semen analysis and HSG labs ordered Jadiel Abbasi MD [facility] 06-30-2023 History of Presen t illness Narrative Deuce Banks is a 27 year old female who presents for problem visit for preconceptual counseling. HPI: 27 YOF who has never conceived in the past here for preconceptual counseling. Same partner x 6 years w/o protection. Joselito is 29 and has never fathered a in past. Neither has had medical history that would be known to affect fertility. No h/o STIs. No meds for either of them. she is not currently taking PNV. OB History T0 L0 SAB0 IAB0 Ectopic0 Multiple0 Live Births0 Shampoo Technician History LMP: 06/20/2023 (Exact Date), Having periods Age at Menarche: Age at First : Age at Menopause: Shampoo Technician History Comments: Sexual Activity: Yes; Male Contraception: None PAST MEDICAL HISTORY Diagnosis Date PMH - PAST MEDICAL HISTORY OF Color Vision - Normal PAST SURGICAL HISTORY Procedure Laterality Date NONE FAMILY HISTORY Problem Relation Age of Onset Cervical Cancer Mother Ovarian cancer Maternal great-grandmother Social History Tobacco Use Smoking status: Never Passive exposure: Yes Smokeless tobacco: Never Vaping Use Vaping Use: Never used Substance Use Topics Alcohol use: Not Currently Drug use: Yes Types: Marijuana No current outpatient medications on file. No current facility-administered medications for this visit. Allergies As of Date: 06/30/2023 (No Known Allergies) Fully Assessed 06/30/2023 Allergies and current medication updated:Yes EXAM: BP 118/70 Wt 138 lb (62.6kg) LMP 06/20/2023 GENERAL: pleasant, female in no apparent distress HEENT: Normocephalic, atraumatic, mucus membranes moist, and no lesions, no hirsuite, minimal acne vulgaris ASSESSMENT AND PLAN: preconceptual counseling. D/w her folic acid D/w her healthy lifestyle, avoiding substances, timing of intercourse Offered empiric trial of clomid recommended semen analysis and HSG labs ordered Jadiel Abbasi MD documented in this encounter [facility] [place] 06-08-2023 Note HNO ID: [id number] Author: Carli Jaimes RDMS Service: ? Author Type: Allergist Type: Progress Notes Filed: 06/08/2023 9:26 AM Note Text: Radiology Service Progress Note PATIENT NAME: Deuce Banks DATE OF SERVICE: June 08, 2023 TIME: 9:26 AM PATIENT IDENTITY VERIFICATION COMPLETED USING TWO (2) IDENTIFIERS: Name and Date of confirmed by patient verbally. FALL SCREENING: Has the patient had 2 falls in the last year or 1 fall with injury or currently using an Ambulatory Assistive Device (Walker, Cane, Wheelchair, Crutches, etc.)? No PATIENT GENDER DATA: Female. status: : No status: NO. PATIENT RELEVANT IMPLANT DATA REVIEWED: Not Applicable RADIOLOGY DEPARTMENT: Ultrasound PERIPHERAL IV DATA: Not applicable SIGNED BY: Carli Jaimes RDMS RVT June 08, 2023 9:26 AM [facility] 06-08-2023 History of Presen t illness Narrative Radiology Service Progress Note PATIENT NAME: Deuce Banks DATE OF SERVICE: June 08, 2023 TIME: 9:26 AM PATIENT IDENTITY VERIFICATION COMPLETED USING TWO (2) IDENTIFIERS: Name and Date of confirmed by patient verbally. FALL SCREENING: Has the patient had 2 falls in the last year or 1 fall with injury or currently using an Ambulatory Assistive Device (Walker, Cane, Wheelchair, Crutches, etc.)? No PATIENT GENDER DATA: Female. status: : No status: NO. PATIENT RELEVANT IMPLANT DATA REVIEWED: Not Applicable RADIOLOGY DEPARTMENT: Ultrasound PERIPHERAL IV DATA: Not applicable SIGNED BY: Carli Jaimes RDMS RVT June 08, 2023 9:26 AM documented in this encounter [facility] 06-01-2023 Note HNO ID: [id number] Author: Amanda Shannon APRN.RUT Service: ? Author Type: Nurse Practitioner Type: Progress Notes Filed: 06/01/2023 11:43 AM Note Text: Deuce is a 27 year old who presents for an annual gynecologic exam with complaints, being trying for for 6 yrs . Menses: cycles every 25-30 days and 7 days of flow. Contraception: none HPV vaccine: Yes Last Pap: never HPV: N/A History of abnormal pap: No Last mammogram: never Sexually active: Yes History of STDS: None Pain with intercourse: No Postcoital bleeding: No OB History T0 L0 SAB0 IAB0 Ectopic0 Multiple0 Live Births0 Shampoo Technician History LMP: 05/18/2023 (Exact Date), Having periods Age at Menarche: Age at First : Age at Menopause: Shampoo Technician History Comments: Sexual Activity: Yes; Male Contraception: None PAST MEDICAL HISTORY Diagnosis Date PMH - PAST MEDICAL HISTORY OF Color Vision - Normal PAST SURGICAL HISTORY Procedure Laterality Date NONE FAMILY HISTORY Problem Relation Age of Onset Cervical Cancer Mother Ovarian cancer Maternal great-grandmother SOCIAL HISTORY Social History Tobacco Use Smoking status: Never Passive exposure: Yes Smokeless tobacco: Never Vaping Use Vaping Use: Never used Substance Use Topics Alcohol use: Not Currently Drug use: Yes Types: Marijuana REVIEW OF SYSTEMS Abdomen: No abdominal pain, vomiting, diarrhea, or constipation. No bloating, early satiety, indigestion, or increased flatulence. +nausea Bladder: No dysuria, gross hematuria, urinary frequency, urinary urgency, or incontinence. Breast: No breast lumps, nipple d/c, overlying skin changes, redness or skin retraction. Allergies and current medication updated:Yes EXAM: BP 102/60 Ht 5' 3 (1.60m) Wt 138 lb 12.8 oz (63.0kg) LMP 05/18/2023 BMI 24.59 kg/(m2). GENERAL: pleasant, female in no apparent distress HEENT: Normocephalic, atraumatic, mucus membranes moist, and no lesions NECK: Supple, full range of motion, no adenopathy, and thyroid normal DERMATOLOGY: Normal, without lesions, non-icteric, and non-hirsute BREAST: soft, non-tender, symmetric, no dominant mass, normal nipple-areolar complex, no lymphadenopathy, and no nipple discharge CHEST: Normal inspiratory effort ABDOMEN: soft, non-tender, and no masses PELVIC: external genitalia normal, normal Bartholin's glands, urethra, [place]'s glands, no vulvar lesions, no cervical lesions, good vaginal support, physiologic discharge present, normal appearing perineal body and perianal region BIMANUAL: uterus normal size, shape and consistency, no adnexal masses, and non-tender RECTOVAGINAL: deferred. NEURO: alert and oriented x3,exam grossly non-focal EXTREMITIES: normal ASSESSMENT/PLAN: 1) Health maintenance: Pap done with HPV. Mammogram starting age 40. Nutrition, exercise and routine health maintenance exams reviewed. Calcium/Vitamin D supplementation information provided. HPV vaccine: completed series 2) Contraception: none. Contraceptive options reviewed and information provided. 3) STD screening: Declined STD check. 4) Follow up one year or sooner as needed 5) pelvic US and appt with doctor to discuss infertility Amanda Shannon APRN.[employer] [facility] 04-01-2023 Note HNO ID: [id number] Author: NIKKI Conroy Service: ? Author Type: Physician Floral Associate Type: Progress Notes Filed: 04/01/2023 2:23 PM Note Text: 27-year-old female presents for right breast pain. Patient states she noticed some redness around her right nipple on Thursday night. She also has been having right arm pain and pain in her right armpit. Pain is gotten worse over the past few days. She states pain is a 7 out of 10, worse with palpation. On exam, patient has some redness around her right areola. She has significant tenderness over right breast, right-sided chest wall and right armpit. No lymphadenopathy noted. Due to significant pain with palpation of breast and chest wall, recommended evaluation in the ER. [facility] 04-01-2023 History of Presen t illness Narrative 27-year-old female presents for right breast pain. Patient states she noticed some redness around her right nipple on Thursday night. She also has been having right arm pain and pain in her right armpit. Pain is gotten worse over the past few days. She states pain is a 7 out of 10, worse with palpation. On exam, patient has some redness around her right areola. She has significant tenderness over right breast, right-sided chest wall and right armpit. No lymphadenopathy noted. Due to significant pain with palpation of breast and chest wall, recommended evaluation in the ER. documented in this encounter [facility] 11-19-2022 Miscellaneous Notes Patient calling with lab result. Patient states she missed call with results of Covid test. Patient aware she tested positive. Patient given message from Dr. Marques Garcia. Patient denies any new or worsening symptoms of which a provider is not aware:Yes. documented in this encounter [facility] 11-19-2022 Miscellaneous Notes Patient notified and verbalized understanding of instructions given.Kendra Quiñones LPN Left message for patient to return call. Shandra Wade COVID test was positive. Stay home for 5 days from symptom onset. After 5 days, you can leave your house if you have not had a fever in the last 24 hours. Continue to wear a mask around others for 5 additional days. If you have a fever, continue to stay home until your fever resolves. Treat with supportive care such as cough medicine, cold medicine, and pain relievers. Follow up with worsening symptoms; in the ER if severe. documented in this encounter [facility] [place] 11-18-2022 Note HNO ID: [id number] Author: Betty Carrillo PA-C Service: ? Author Type: Physician Floral Associate Type: Progress Notes Filed: 11/18/2022 6:47 PM Note Text: This note was created using [employer]. Subjective Deuce Banks is a 27 year old female. HPI Presents with cough congestion and sore throat. She had worsening left ear pain so came back in for evaluation. She was seen 4 days ago and told she had a viral URI. Strep was negative. COVID and flu testing not done. She denies sinus pressure or pain. She had a fever day 1 of illness but none since. She has been sick for a total of 5 days. Cough started 2 days ago. No history of asthma. No cp or sob. Review of Systems Constitutional: Positive for fatigue. HENT: Positive for congestion, ear pain and sore throat. Negative for ear discharge, rhinorrhea, sinus pressure and sinus pain. Respiratory: Positive for cough. Negative for shortness of breath. Cardiovascular: Negative. Gastrointestinal: Negative. Genitourinary: Negative. Musculoskeletal: Negative. All other systems reviewed and are negative. PAST MEDICAL HISTORY Diagnosis Date PMH - PAST MEDICAL HISTORY OF Color Vision - Normal Current Outpatient Medications Medication Sig Dispense Refill predniSONE (DELTASONE) 20 mg tablet Take 2 tablets by mouth once daily for 5 days. 10 tablet 0 benzonatate (TESSALON PERLES) 100 mg capsule Take 2 capsules by mouth three times daily as needed. 30 capsule 0 No current facility-administered medications for this visit. PAST SURGICAL HISTORY Procedure Laterality Date NONE FAMILY HISTORY Problem Relation Age of Onset Cancer Mother Maternal side - lung cancer Diabetes Mother Maternal side Social History Tobacco Use Smoking status: Never Passive exposure: Yes Smokeless tobacco: Never Objective BP 110/72 Pulse 87 Temp 37.1 ?C (98.8 ?F) (Tympanic) Resp 18 Wt 63.4 kg (139 lb 12.8 oz) LMP 03/08/2016 SpO2 98% Physical Exam Vitals reviewed. Constitutional: Appearance: Normal appearance. HENT: Head: Normocephalic and atraumatic. Right Ear: Tympanic membrane, ear canal and external ear normal. Left Ear: Tympanic membrane, ear canal and external ear normal. Nose: Congestion present. Mouth/Throat: Mouth: Mucous membranes are moist. Pharynx: Oropharynx is clear. No oropharyngeal exudate or posterior oropharyngeal erythema. Cardiovascular: Rate and Rhythm: Normal rate and regular rhythm. Heart sounds: Normal heart sounds. Pulmonary: Effort: Pulmonary effort is normal. Breath sounds: Normal breath sounds. Musculoskeletal: Cervical back: Neck supple. Lymphadenopathy: Cervical: No cervical adenopathy. Skin: General: Skin is warm and dry. Findings: No rash. Neurological: Mental Status: She is alert. Assessment and Plan ASSESSMENT/PLAN: 1. Viral URI with cough - ICD9: 465.9, ICD10: J06.9 - Discussed viral etiology and rationale for treatment. - Symptomatic treatment with prn analgesia - Supportive care with fluids and rest Discussed that this is likely still viral. I did give her prednisone and Tessalon to help with symptoms. COVID and flu testing pending as well. Home COVID test was negative for the patient today however. Discussed the course of a viral illness and red flags to be seen again. Patient agreeable. - COVID WITH FLUA+B, ROUTINE 2. Eustachian tube dysfunction, bilateral - ICD9: 381.81, ICD10: H69.83 Discussed continuing Flonase. Betty Carrillo PA-C [facility] 11-18-2022 History of Presen t illness Narrative This note was created using [employer]. Subjective Deuce Banks is a 27 year old female. HPI Presents with cough congestion and sore throat. She had worsening left ear pain so came back in for evaluation. She was seen 4 days ago and told she had a viral URI. Strep was negative. COVID and flu testing not done. She denies sinus pressure or pain. She had a fever day 1 of illness but none since. She has been sick for a total of 5 days. Cough started 2 days ago. No history of asthma. No cp or sob. Review of Systems Constitutional: Positive for fatigue. HENT: Positive for congestion, ear pain and sore throat. Negative for ear discharge, rhinorrhea, sinus pressure and sinus pain. Respiratory: Positive for cough. Negative for shortness of breath. Cardiovascular: Negative. Gastrointestinal: Negative. Genitourinary: Negative. Musculoskeletal: Negative. All other systems reviewed and are negative. PAST MEDICAL HISTORY Diagnosis Date PMH - PAST MEDICAL HISTORY OF Color Vision - Normal Current Outpatient Medications Medication Sig Dispense Refill predniSONE (DELTASONE) 20 mg tablet Take 2 tablets by mouth once daily for 5 days. 10 tablet 0 benzonatate (TESSALON PERLES) 100 mg capsule Take 2 capsules by mouth three times daily as needed. 30 capsule 0 No current facility-administered medications for this visit. PAST SURGICAL HISTORY Procedure Laterality Date NONE FAMILY HISTORY Problem Relation Age of Onset Cancer Mother Maternal side - lung cancer Diabetes Mother Maternal side Social History Tobacco Use Smoking status: Never Passive exposure: Yes Smokeless tobacco: Never Objective BP 110/72 Pulse 87 Temp 37.1 C (98.8 F) (Tympanic) Resp 18 Wt 63.4 kg (139 lb 12.8 oz) LMP 03/08/2016 SpO2 98% Physical Exam Vitals reviewed. Constitutional: Appearance: Normal appearance. HENT: Head: Normocephalic and atraumatic. Right Ear: Tympanic membrane, ear canal and external ear normal. Left Ear: Tympanic membrane, ear canal and external ear normal. Nose: Congestion present. Mouth/Throat: Mouth: Mucous membranes are moist. Pharynx: Oropharynx is clear. No oropharyngeal exudate or posterior oropharyngeal erythema. Cardiovascular: Rate and Rhythm: Normal rate and regular rhythm. Heart sounds: Normal heart sounds. Pulmonary: Effort: Pulmonary effort is normal. Breath sounds: Normal breath sounds. Musculoskeletal: Cervical back: Neck supple. Lymphadenopathy: Cervical: No cervical adenopathy. Skin: General: Skin is warm and dry. Findings: No rash. Neurological: Mental Status: She is alert. Assessment and Plan ASSESSMENT/PLAN: 1. Viral URI with cough - ICD9: 465.9, ICD10: J06.9 - Discussed viral etiology and rationale for treatment. - Symptomatic treatment with prn analgesia - Supportive care with fluids and rest Discussed that this is likely still viral. I did give her prednisone and Tessalon to help with symptoms. COVID and flu testing pending as well. Home COVID test was negative for the patient today however. Discussed the course of a viral illness and red flags to be seen again. Patient agreeable. - COVID WITH FLUA+B, ROUTINE 2. Eustachian tube dysfunction, bilateral - ICD9: 381.81, ICD10: H69.83 Discussed continuing Flonase. Betty Carrillo PA-C documented in this encounter [facility] [place] 11-14-2022 Note HNO ID: [id number] Author: NIKKI Conroy Service: ? Author Type: Physician Floral Associate Type: Progress Notes Filed: 11/14/2022 10:29 AM Note Text: This note was created using [employer]. Subjective Deuce Banks is a 27 year old female. HPI 27-year-old female presents for right ear pain, sore throat x2 days. Patient states she has had a sore throat for the past few days and also some right ear pain. She denies any difficulty swallowing. She is still able to eat and drink. No sick contacts. She states she did have a low-grade fever of 100 ?F a few days ago. No vomiting or diarrhea. No Cough or other URI symptoms PAST MEDICAL HISTORY Diagnosis Date PMH - PAST MEDICAL HISTORY OF Color Vision - Normal PAST SURGICAL HISTORY Procedure Laterality Date NONE ALLERGIES Patient has no known allergies. MEDICATIONS No prescriptions on file. FAMILY HISTORY Problem Relation Age of Onset Cancer Mother Maternal side - lung cancer Diabetes Mother Maternal side Social History Tobacco Use Smoking status: Never Passive exposure: Yes Smokeless tobacco: Never Review of Systems Constitutional: Positive for fever. Negative for chills. HENT: Positive for ear pain, hearing loss and sore throat. Negative for congestion. Respiratory: Negative for cough and shortness of breath. Cardiovascular: Negative for chest pain. Gastrointestinal: Negative for diarrhea and vomiting. Objective BP 118/66 Pulse 99 Temp 36.9 ?C (98.5 ?F) Resp 21 Wt 63.6 kg (140 lb 3.2 oz) LMP 03/08/2016 SpO2 99% Physical Exam Vitals and nursing note reviewed. Constitutional: General: She is not in acute distress. Appearance: Normal appearance. She is not toxic-appearing. HENT: Right Ear: Ear canal normal. A middle ear effusion is present. Left Ear: Tympanic membrane and ear canal normal. Ears: Comments: Slight middle ear effusion on the right, no redness or signs of infection. Nose: Nose normal. Mouth/Throat: Mouth: Mucous membranes are moist. Pharynx: Uvula midline. Posterior oropharyngeal erythema present. No oropharyngeal exudate. Tonsils: No tonsillar exudate or tonsillar abscesses. 0 on the right. 0 on the left. Comments: Uvula midline. No tonsillar abscess seen. No tonsillar swelling. Posterior oropharyngeal erythema noted without exudates. Handling secretions. Eyes: Conjunctiva/sclera: Conjunctivae normal. Cardiovascular: Rate and Rhythm: Normal rate and regular rhythm. Pulmonary: Effort: Pulmonary effort is normal. Breath sounds: Normal breath sounds. Neurological: Mental Status: She is alert. Assessment and Plan ASSESSMENT/PLAN: 1. Sore throat - ICD9: 462, ICD10: J02.9 (primary diagnosis) - suspect viral - Alere Strep Test negative, no culture pending - Discussed supportive care treatment with fluids, rest and analgesia. - STREP A MOLECULAR (POC) -Discussed COVID/flu swab, but declines. 2. Right ear pain - ICD9: 388.70, ICD10: H92.01 -No signs of infection on exam. Small middle ear effusion, possibly due to congestion/eustachian tube dysfunction. -Recommend OTC nasal decongestant, Flonase. -Follow-up with PCP if no improvement. Diagnosis and treatment plan were discussed and questions were answered to the patient's satisfaction. Pt acknowledged understanding of concepts and follow up plan. Specific signs and symptoms that would indicate the need for higher level of care were discussed in detail warranting prompt ER evaluation. NIKKI Conroy [facility] 11-14-2022 History of Presen t illness Narrative This note was created using [employer]. Subjective Deuce Banks is a 27 year old female. HPI 27-year-old female presents for right ear pain, sore throat x2 days. Patient states she has had a sore throat for the past few days and also some right ear pain. She denies any difficulty swallowing. She is still able to eat and drink. No sick contacts. She states she did have a low-grade fever of 100 F a few days ago. No vomiting or diarrhea. No Cough or other URI symptoms PAST MEDICAL HISTORY Diagnosis Date PMH - PAST MEDICAL HISTORY OF Color Vision - Normal PAST SURGICAL HISTORY Procedure Laterality Date NONE ALLERGIES Patient has no known allergies. MEDICATIONS No prescriptions on file. FAMILY HISTORY Problem Relation Age of Onset Cancer Mother Maternal side - lung cancer Diabetes Mother Maternal side Social History Tobacco Use Smoking status: Never Passive exposure: Yes Smokeless tobacco: Never Review of Systems Constitutional: Positive for fever. Negative for chills. HENT: Positive for ear pain, hearing loss and sore throat. Negative for congestion. Respiratory: Negative for cough and shortness of breath. Cardiovascular: Negative for chest pain. Gastrointestinal: Negative for diarrhea and vomiting. Objective BP 118/66 Pulse 99 Temp 36.9 C (98.5 F) Resp 21 Wt 63.6 kg (140 lb 3.2 oz) LMP 03/08/2016 SpO2 99% Physical Exam Vitals and nursing note reviewed. Constitutional: General: She is not in acute distress. Appearance: Normal appearance. She is not toxic-appearing. HENT: Right Ear: Ear canal normal. A middle ear effusion is present. Left Ear: Tympanic membrane and ear canal normal. Ears: Comments: Slight middle ear effusion on the right, no redness or signs of infection. Nose: Nose normal. Mouth/Throat: Mouth: Mucous membranes are moist. Pharynx: Uvula midline. Posterior oropharyngeal erythema present. No oropharyngeal exudate. Tonsils: No tonsillar exudate or tonsillar abscesses. 0 on the right. 0 on the left. Comments: Uvula midline. No tonsillar abscess seen. No tonsillar swelling. Posterior oropharyngeal erythema noted without exudates. Handling secretions. Eyes: Conjunctiva/sclera: Conjunctivae normal. Cardiovascular: Rate and Rhythm: Normal rate and regular rhythm. Pulmonary: Effort: Pulmonary effort is normal. Breath sounds: Normal breath sounds. Neurological: Mental Status: She is alert. Assessment and Plan ASSESSMENT/PLAN: 1. Sore throat - ICD9: 462, ICD10: J02.9 (primary diagnosis) - suspect viral - Alere Strep Test negative, no culture pending - Discussed supportive care treatment with fluids, rest and analgesia. - STREP A MOLECULAR (POC) -Discussed COVID/flu swab, but declines. 2. Right ear pain - ICD9: 388.70, ICD10: H92.01 -No signs of infection on exam. Small middle ear effusion, possibly due to congestion/eustachian tube dysfunction. -Recommend OTC nasal decongestant, Flonase. -Follow-up with PCP if no improvement. Diagnosis and treatment plan were discussed and questions were answered to the patient's satisfaction. Pt acknowledged understanding of concepts and follow up plan. Specific signs and symptoms that would indicate the need for higher level of care were discussed in detail warranting prompt ER evaluation. NIKKI Conroy documented in this encounter [facility] [place] documented in [facility] Diagnosis Viral URI with cough- Primary Acute upper respiratory infections of unspecified site Eustachian tube dysfunction, bilateral [facility] Diagnosis Breast pain- Primary Mastodynia [facility] Diagnosis Menorrhagia with regular cycle- Primary Excessive or frequent menstruation [facility] Diagnosis Infertility, female Female infertility of unspecified origin [facility] (narrative)* Diagnostic Procedure Only (Routine) - Closed Specialty Diagnoses / Procedures Referred By Laurie t Referred To Contact US IMAGING Diagnoses Infertility, female Procedures US FEMALE PELVIS TRANSVAG US TRANSVAGINAL Amanda Shannon APRN.CNP [address] [place] [address] [place] [address] Referral ID Status Reason Start Date Expiration Date V isits Requested Visits Authorized [id number] Closed Auto-Generate d Referral 06/01/2023 06/30/2024 1 1 [facility] [place] Health Concerns Infection Onset Date Last Indicated Resolved Time COVID-19 Rule-Out 11/18/2022 11/18/2022 Infection Onset Date Last Indicated Resolved Time COVID-19 Rule-Out 11/18/2022 11/18/2022 11/19/2022 4:31 AM EST COVID-19 Confirmed 11/18/2022 11/18/2022 Summary Purpose Family History No Family History Records Found Advance Directives No Advanced Directives Records Found Additional Source Comments Source Comments (unrecognize d section and content) In the event this informatio n is protected by the Federal Confidentiality of Alcohol and Drug Abuse Patient Records regulations: The Federal rules restrict any use of the information to criminally investigate or prosecute any alcohol or drug abuse patient.[facility] the event this information is protected by the Federal Confidentiality of Alcohol and Drug Abuse Patient Records regulations: The Federal rules restrict any use of the information to criminally investigate or prosecute any alcohol or drug abuse patient.[facility] the event this information is protected by the Federal Confidentiality of Alcohol and Drug Abuse Patient Records regulations: The Federal rules restrict any use of the information to criminally investigate or prosecute any alcohol or drug abuse patient.[facility] the event this information is protected by the Federal Confidentiality of Alcohol and Drug Abuse Patient Records regulations: The Federal rules restrict any use of the information to criminally investigate or prosecute any alcohol or drug abuse patient.[facility] [place] the event this information is protected by the Federal Confidentiality of Alcohol and Drug Abuse Patient Records regulations: The Federal rules restrict any use of the information to criminally investigate or prosecute any alcohol or drug abuse patient.[facility] the event this information is protected by the Federal Confidentiality of Alcohol and Drug Abuse Patient Records regulations: The Federal rules restrict any use of the information to criminally investigate or prosecute any alcohol or drug abuse patient.[facility] [place] the event this information is protected by the Federal Confidentiality of Alcohol and Drug Abuse Patient Records regulations: The Federal rules restrict any use of the information to criminally investigate or prosecute any alcohol or drug abuse patient.[facility] [place] the event this information is protected by the Federal Confidentiality of Alcohol and Drug Abuse Patient Records regulations: The Federal rules restrict any use of the information to criminally investigate or prosecute any alcohol or drug abuse patient.[facility] [place] Reason for Visit (unrecogniz ed section and content) Reason Comments Ear Pain Bilateral ear pain, ST, congestion and cough x 5 days Reason Comments Results COVID-positive Reason Comments Results Reason Comments Pain Right breast sore , burning x 2 days Reason Comments Discussion preconceptual counse ling Reason Comments Radiology US Specialty Diagnoses / Procedures Referred By Siddharthac t Referred To Contact US IMAGING Diagnoses Infertility, female Procedures US FEMALE PELVIS TRANSVAG US TRANSVAGINAL Amanda Shannon APRN.[employer] [address] [place] [address] [place] [id number] Referral ID Status Reason Start Date Expiration Date V isits Requested Visits Authorized [id number] Closed Auto-Generate d Referral 06/01/2023 06/30/2024 1 1 INFORMATION SOURCE (unrecogn ized section and content) FOR RECORDS PERTAINING TO PATIENTS WHO ARE OR HAVE BEEN ENROLLED IN A CHEMICAL DEPENDENCY/SUBSTANCEABUSE PROGRAM, SOME INFORMATION MAY BE OMITTED. This clinical summary was aggregated from multiple sources. Caution should be exercised in using it in the provision of clinical care. This summary normalizes information from multiple sources, and as a consequence, information in this document may materially change the coding, format and clinical context of patient data. In addition, data may be omitted in some cases. CLINICAL DECISIONS SHOULD BE BASED ON THE PRIMARY CLINICAL RECORDS. [employer] [facility] [facility]. provides no warranty or guarantee of the accuracy or completeness of information in this document.
[2023-09-28 03:15] LABS: AST(SGOT) 12 U/L (15-37); Alanine Aminotransfer ALT/SGPT 16 U/L (13-56); Albumin, Serum 4.2 g/dL (3.2-5.0); Alkaline Phosphatase 90 U/L (45-117); Anion Gap 13 (5-15); BUN 11 mg/dL (7-18); BUN/Creat Ratio 12.2 RATIO (10-20); Calcium,Total 9.1 mg/dL (8.5-10.1); Chloride 113 mmol/L (98-107); EST Glomerular Filtration Rate 78 mL/min (>60); Est Glom Filt Rate - Afr Amer 95 mL/min (>60); Globulin 3.4 g/dL (2.2-4.2); Glucose 111 mg/dL (74-106); Potassium 2.9 mmol/L (3.5-5.1); Protein, Total 7.6 g/dL (6.4-8.2); Sodium Level 143 mmol/L (136-145)
[2023-09-28 03:21] LABS: Acetaminophen (Tylenol) Level < 2.0 ug/mL (10.0-30.0); Salicylate < 1.7 mg/dL (2.8-20.0)
[2023-09-28 03:32] LABS: Internal QC Validated? YES +Cl - CLEAR BKGD; Pregnancy, Urine Negative Negative
[2023-09-28 04:09] LABS: Amphetamine Urine VISTA NEGATIVE (<1000 ng/mL); Barbiturate Urine VISTA NEGATIVE (< 200 ng/mL); Benzodiazepine Urine VISTA NEGATIVE (< 200 ng/mL); Cocaine Urine VISTA NEGATIVE (< 300 ng/mL); Ecstacy Urine VISTA NEGATIVE (< 500 ng/mL); Methadone Urine VISTA NEGATIVE (< 300 ng/mL); PCP Urine VISTA NEGATIVE (< 25 ng/mL); THC Urine VISTA NEGATIVE (< 50 ng/mL); Vista UDS pH Range 6
--- NOTE | 2023-09-28 05:45 | EX.ED.DYSGE1 ---
HPI History of Present Illness Chief Complaint: Overdose Informant: patient and parent Narrative Narrative: Patient is a 27-year-old female with past medical history of asthma. She was brought in by family after notifying them of an intentional overdose. Patient reportedly had her relationship with her boyfriend and spontaneously this evening and after this she was very distraught and reported drinking alcohol and taking an unknown number of [id number] sleep aid medication. She states she does not know how many of the pills she took and she is unsure of what time she did this but family believes it was around midnight. The patient denies any previous history of depression need for psychiatric hospitalization or suicide attempt. However because of the actions that occurred this evening she was brought in for evaluation [facility] Medical History (Updated 09/28/23 @ 07:[address] John Mahan, ) Asthma COVID-19 Home Medications NK 09/28/23 [History Last Taken Unknown] Allergy/AdvReac Type Severity Reaction Status Date / Time No Known Allergies Allergy Verified 09/28/23 02:39 Family History (Updated 04/01/23 @ 16:15 by Sarah Beth Posadas) Other Ovarian cancer Social History Smoking Status: Never smoker ROS ROS ED Constitutional Constitutional ED: Denies chills or fever(s) ENT ENT ED: Denies sore throat Cardiovascular Cardiovascular: Reports racing heartbeat; Denies chest pain Respiratory/Chest Respiratory/Chest: Denies cough or dyspnea Gastrointestinal Gastrointestinal: Reports nausea and vomiting; Denies abdominal pain or diarrhea Genitourinary Genitourinary ED: Denies dysuria Musculoskeletal Musculoskeletal: Denies myalgias Integumentary Denies rash Neurologic Neurologic: Denies headache(s) Psychiatric Psychiatric: Reports depression, suicidal ideation and suicidal thoughts Hematologic/Lymphatic Hematologic/Lymphatic: Denies easy bleeding or easy bruising EXAM Physical Exam Const Vital Signs: 09/28/23 02:39 09/28/23 03:39 09/28/23 04:00 Temperature 97.4 F L Temperature Source Temporal Pulse Rate 117 H 90 91 Respiratory Rate 15 12 12 Blood Pressure 155/94 H 120/79 Blood Pressure Mean 114 92 Pulse Ox 100 100 100 Oxygen Delivery Method Room Air Room Air 09/28/23 05:00 09/28/23 06:00 09/28/23 07:00 Temperature Temperature Source Pulse Rate 87 97 95 Respiratory Rate 14 14 Blood Pressure 122/79 H 125/71 H Blood Pressure Mean 93 89 Pulse Ox 99 99 Oxygen Delivery Method Room Air Room Air Positive well nourished and well developed General Appearance ED: well developed; Negative for pallor HEENT HEENT Narrative: Normocephalic atraumatic No airway edema or compromise No signs of infection noted in the posterior pharynx Eyes Eyes Narrative: Pupils are dilated and slightly sluggish to respond to light with nystagmus present General Eye ED: Negative for scleral icterus Neck supple Neck Narrative: No nuchal rigidity or meningeal signs Chest Wall palpation of chest normal Resp normal respiratory effort and clear to auscultation bilaterally Resp Narrative: No nasal flaring retractions tachypnea or accessory muscle use Cardio regular rhythm Rate: tachycardic and other Other Details: Tachycardic rate with regular rhythm Radial and carotid pulses are equal and symmetric No murmurs rubs or gallops GI non-tender and non-distended GI Narrative: Abdomen is soft nontender nondistended with hypoactive bowel sounds No voluntary guarding or rigidity or pulsatile mass Auscultation: hypoactive bowel sounds Palpation: soft Extremity normal to inspection Extremity Narrative: No asymmetric edema no pitting edema negative Homans' sign bilaterally Neuro oriented x3 and CN's II-XII intact bilaterally Neuro Narrative: Patient is slow to respond but she is awake and alert and there are no focal neurologic deficits noted GCS of 15 Sensorium / Orientation: alert Motor Exam: strength 5/5 throughout Psych Psych Narrative: Patient has a tearful depressed affect Skin no rashes or lesions noted General Skin Exam: Negative for jaundice or pallor MDM MDM MDM Narrative Medical decision making narrative: Patient presented to the ER hypertensive and tachycardic. She reported drinking alcohol and taking an unknown number of [id number]-[id number] sleep aid medication which was most likely diphenhydramine/Benadryl. This can cause a anticholinergic event which does correlate with her tachycardia and hypertension it also correlates with her dilated pupils and nystagmus. Secondary to the intentional overdose a medical screening exam was performed. Patient's white count is elevated at 13.6 which is nonspecific and most likely stress response. Her kidney function is normal her electrolytes are within normal range as well. She also does not have signs of coingestions as talk screen is negative and her aspirin and Tylenol levels negative as well. Poison control was contacted regarding the Benadryl overdose and they recommend she be watched for 6 hours from the time of ingestion which we are using as midnight until she is medically cleared. They also recommend initial and repeat EKG to ensure there is no prolongation of the QTc or QRS. The patient was watched in the ER her vitals improved as the diphenhydramine/Benadryl metabolized out of her system and her EKG did not show any prolongation of her intervals. Therefore after being watched for the appropriate time recommended by poison control and having a stable EKG and improvement of her vitals there is no further need for observation in the ER. Because of the intentional overdose crisis center will be contacted and will evaluate the patient in regards to psychiatric placement. At this time the patient is medically cleared from the emergency room and overdose standpoint and she is safe for placement/transfer to a psychiatric facility History & Record Review Discussion w/independent historian: Patient and Family Lab Data Attestation: I reviewed the patient's lab results. Labs: Laboratory Results - last 24 hr 09/28/23 09/28/23 02:47 03:17 WBC 13.6 H RBC 4.49 Hgb 13.9 Hct 41.2 MCV 91.8 MCH 31.0 MCHC 33.7 RDW Std Deviation 41.6 RDW Coeff of Marcela 12.5 Plt Count 348 MPV 9.1 Immature Gran % (Auto) 0.300 Neut % (Auto) 87.4 H Lymph % (Auto) 8.9 L [place] % (Auto) 2.9 Eos % (Auto) 0.1 Baso % (Auto) 0.4 Absolute Neuts (auto) 11.9 H Absolute Lymphs (auto) 1.21 Nucleated RBC % 0 Sodium 143 Potassium 2.9 L Chloride 113 H Carbon Dioxide 17.0 L Anion Gap 13 BUN 11 Creatinine 0.90 Estim Creat Clear Calc 76.30 Est GFR (MDRD) Af Amer 95 Est GFR (MDRD) Non-Af 78 BUN/Creatinine Ratio 12.2 Glucose 111 H Calcium 9.1 Total Bilirubin 0.40 Direct Bilirubin 0.10 AST 12 L ALT 16 Alkaline Phosphatase 90 Total Protein 7.6 Albumin 4.2 Globulin 3.4 Urine Test Negative Salicylates < 1.7 L Urine Opiates Screen NEGATIVE Urine Methadone Screen NEGATIVE Acetaminophen < 2.0 L Ur Barbiturates Screen NEGATIVE Ur Phencyclidine Scrn NEGATIVE Ur Amphetamines Screen NEGATIVE MDMA (Ecstasy) Screen NEGATIVE U Benzodiazepines Scrn NEGATIVE Urine Cocaine Screen NEGATIVE U Cannabinoids Screen NEGATIVE Ur Drug Screen Comment Ethyl Alcohol 6.0 Discharge Plan Triage Chief Complaint: Overdose ED Provider: John Mahan Dx/Rx/DC Orders Clinical Impression: Intentional overdose, Depression, Asthma Prescriptions: No Action NK Primary Care Provider: Care Physician,No Primary Referrals: Care Physician,No Primary [Primary Care Provider] - Disposition Disposition: Psychiatric Hospital or Unit
--- NOTE | 2023-09-28 06:22 | EKG12_ITS ---
Test Reason : MH-REPEAT Blood Pressure : / mmHG Vent. Rate : 098 BPM Atrial Rate : 098 BPM P-R Int : 154 ms QRS Dur : 072 ms QT Int : 348 ms P-R-T Axes : 071 080 047 degrees QTc Int : 444 ms Normal sinus rhythm Normal ECG Confirmed by SOHA ELLIOTT, [place]YENNE ([id number]), photographic editor MINDA PERASON ([id number]) on 09/29/2023 9:59:13 AM Referred By: Confirmed By:CHEYENNE HOYOS MD
--- NOTE | 2023-09-28 07:01 | ED.RN ---
[facility] CALLED TO EVALUATE PT, FAXED THEM MEDICAL CLEARANCE.
--- NOTE | 2023-09-28 09:44 | ED.RN ---
poison control calls updated on pt. statuts
== END 2023-09-28 13:17 ==
PROVIDERS: Emergency Provider Emergency Medicine; Visit Provider Emergency Medicine
DX: T50.902A Poisoning by unspecified drugs, medicaments and biological substances, intentional self-harm, initial encounter (principal); J45.909 Unspecified asthma, uncomplicated; F32.A Depression, unspecified
CPT/HCPCS: 80048; 80076; 80307; 80320; 80329; 81025; 85025; 87811; 93005; 99284; G0480